=== PATIENT | male | born 1960 | race Caucasian/White ===

== ENCOUNTER → 2016-11-25 | Outpatient (CLI) | payer OTHER | LOC: BMCIMAGING 14:08 | PROVIDERS: ATTEND Internal Medicine Endocrinology, Diabetes & Metabolism | DX: Z13.820 Encounter for screening for osteoporosis (principal); M85.80 Other specified disorders of bone density and structure, unspecified site; N50.9 Disorder of male genital organs, unspecified; I86.1 Scrotal varices; E21.3 Hyperparathyroidism, unspecified ==